=== PATIENT | female | born 1950 | race Caucasian/White ===

== ENCOUNTER 2022-10-30 10:02 | Outpatient (CLI) | payer OTHER, SELFPAY ==
--- NOTE | 2022-10-30 10:15 | CRLHL7_ITS ---
For Patients: As a result of the Cures Act, medical imaging exams and procedure reports are released immediately into your electronic medical record. You may view this report before your referring provider. If you have questions, please contact your health care provider. BILATERAL SCREENING MAMMOGRAM WITH COMPUTER-AIDED DETECTION AND TOMOSYNTHESIS TECHNIQUE: CC and MLO views were obtained. These mammographic images have been obtained using full-field digital technique. These mammographic images were interpreted with the benefit of computer-aided detection. Breast Tomosynthesis was used in this interpretation. COMPARISON FILM: 07/10/21, 07/07/20, 06/11/19. FINDINGS: There are scattered areas of fibroglandular density IMPRESSION: There is no radiographic evidence for malignancy. ASSESSMENT: BI-RADS Category 1: Negative RECOMMENDATION: Routine screening mammogram in 1 year. A lay language report of this examination will be provided to the patient. Anat Esparza M.D. Diagnostic/Breast Radiologist [email or web address] Transcribed: 12:16 p.mCammie lewis/Dictated by: Anat Esparza MD @ 10/30/2022 10:42:00 AM (Electronically Signed)
== END 2022-10-30 10:03 | disposition home or self-care (01) ==
LOC: MAMMO 10:03
PROVIDERS: PCP Family Medicine; Visit Provider Family Medicine
DX: Z12.31 Encounter for screening mammogram for malignant neoplasm of breast (principal)
CPT/HCPCS: 77063; 77067

== ENCOUNTER 2023-02-13 08:19 | Outpatient (CLI) | payer MEDICARE, OTHER, SELFPAY | END 2023-02-13 08:20 | disposition home or self-care (01) | PROVIDERS: PCP Family Medicine; Referring Provider Family Medicine; Visit Provider Family Medicine | DX: E78.5 Hyperlipidemia, unspecified (principal); I10 Essential (primary) hypertension; R73.03 Prediabetes | CPT/HCPCS: 80053; 80061 ==

== ENCOUNTER 2024-03-26 13:17 | Outpatient (CLI) | payer MEDICARE, OTHER, SELFPAY ==
--- NOTE | 2024-03-26 13:40 | CRLHL7_ITS ---
For Patients: As a result of the Century Cures Act, medical imaging exams and procedure reports are released immediately into your electronic medical record. You may view this report before your referring provider. If you have questions, please contact your health care provider. BILATERAL SCREENING MAMMOGRAM WITH COMPUTER-AIDED DETECTION AND TOMOSYNTHESIS TECHNIQUE: CC and MLO views were obtained. These mammographic images have been obtained using full-field digital technique. These mammographic images were interpreted with the benefit of computer-aided detection. Breast Tomosynthesis was used in this interpretation. COMPARISON FILM: 10/30/22, 07/10/21, 07/07/20. FINDINGS: There are scattered areas of fibroglandular density IMPRESSION: There is no radiographic evidence for malignancy. ASSESSMENT: BI-RADS Category 2: Benign RECOMMENDATION: Routine screening mammogram in 1 year. A lay language report of this examination will be provided to the patient. Christiano Monroe M.D. Diagnostic Radiologist [email or web address] SARA/Dictated by: Christiano Monroe MD @ 03/27/2024 9:25:00 AM (Electronically Signed)
== END 2024-03-26 13:18 | disposition home or self-care (01) ==
LOC: MAMMO 13:18
PROVIDERS: PCP Family Medicine; Visit Provider Family Medicine
DX: Z12.31 Encounter for screening mammogram for malignant neoplasm of breast (principal)
CPT/HCPCS: 77063; 77067

== ENCOUNTER 2024-04-29 08:02 | Outpatient (CLI) | payer MEDICARE, OTHER, SELFPAY | END 2024-04-29 08:03 | disposition home or self-care (01) | LOC: NFLDREF 05-02 20:28 | PROVIDERS: PCP Family Medicine; Referring Provider Family Medicine; Visit Provider Family Medicine | DX: E78.5 Hyperlipidemia, unspecified (principal); I10 Essential (primary) hypertension; R73.03 Prediabetes; R53.83 Other fatigue; F32.9 Major depressive disorder, single episode, unspecified | CPT/HCPCS: 80053; 80061 ==

== ENCOUNTER 2025-04-22 14:41 | Outpatient (CLI) | payer MEDICARE, OTHER, SELFPAY ==
--- NOTE | 2025-04-22 15:00 | CRLHL7_ITS ---
For Patients: As a result of the Century Cures Act, medical imaging exams and procedure reports are released immediately into your electronic medical record. You may view this report before your referring provider. If you have questions, please contact your health care provider. INDICATION: BILATERAL SCREENING MAMMOGRAM, ASYMPTOMATIC 75 Y/O FEMALE COMPARISON: , 10/30/2022, 07/10/2021 TECHNIQUE: Digital mammogram in CC and MLO projections including computer-aided detection (CAD) and tomosynthesis. BREAST COMPOSITION: There are scattered areas of fibroglandular density. FINDINGS: No suspicious findings. ASSESSMENT: BI-RADS 2 Benign RECOMMENDATION: Annual screening mammogram. A lay language report of this examination will be provided to the patient. Dictated by: Christiano Monroe MD @ 04/23/2025 10:25:32 (Electronically Signed)
== END 2025-04-22 14:42 | disposition home or self-care (01) ==
LOC: MAMMO 14:43
PROVIDERS: PCP Family Medicine; Visit Provider Family Medicine
DX: Z12.31 Encounter for screening mammogram for malignant neoplasm of breast (principal)
CPT/HCPCS: 77063; 77067

== ENCOUNTER 2025-05-10 09:05 | Outpatient (CLI) | payer MEDICARE, OTHER, SELFPAY | END 2025-05-10 09:06 | disposition home or self-care (01) | LOC: NFLDREF 05-11 17:34 | PROVIDERS: PCP Family Medicine; Referring Provider Family Medicine; Visit Provider Family Medicine | DX: I10 Essential (primary) hypertension (principal); E78.5 Hyperlipidemia, unspecified | CPT/HCPCS: 80053; 80061 ==